=== PATIENT | male | born 1935 | race Caucasian/White ===

== ENCOUNTER 2017-09-28 17:55 | Inpatient (IN) | payer MEDICARE, OTHER, MEDICAID ==
[2017-09-28 18:39] LABS: ADD MAN DIFF? NO
[2017-09-28 18:40] LABS: WHITE BLOOD COUNT 16.9 10^3/ul (4.8-10.8)
[2017-09-28 18:40] LABS: BASOPHIL # 0.1 10^3/ul (0.0-0.1); BASOPHILS % 0.6 % (0.0-2.0); EOSINOPHILS # 0.2 10^3/ul (0.0-0.5); EOSINOPHILS % 1.4 % (0.0-7.0); HEMATOCRIT 32.7 % (42.0-52.0); HEMOGLOBIN 11.1 g/dl (14.0-18.0); LYMPHOCYTES # 1.5 10^3/ul (0.8-2.9); MEAN CORPUSCULAR HEMOGLOBIN 30.2 pg (29.0-33.0); MEAN CORPUSCULAR HGB CONC 33.9 g/dl (32.0-37.0); MEAN CORPUSCULAR VOLUME 88.9 fl (82.0-101.0); MEAN PLATELET VOLUME 11.3 fl (7.4-10.4); MONOCYTE # 1.1 10^3/ul (0.3-0.9); MONOCYTES % 6.5 % (0.0-11.0); NEUTROPHIL # 13.9 10^3/ul (1.6-7.5); PLATELET COUNT 433 10^3/UL (140-415); RED BLOOD COUNT 3.68 10^6/ul (4.70-6.10); RED CELL DISTRIBUTION WIDTH 15.1 % (11.5-14.5)
[2017-09-28] MEDS: METHYLPREDNISOLONE 125 MG INJ IV (18:44)
[2017-09-28 19:03] LABS: PROTIME 14.4 Sec (11.9-14.9); PT RATIO 1.1
[2017-09-28] MEDS: ALBUTEROL 0.5% (NEB) 2.5 MG/0.5 ML AMP INH (19:05)
[2017-09-28] MEDS: IPRATROPIUM (NEB) 0.5 MG/2.5 ML AMP INH (19:05)
[2017-09-28 19:07] LABS: ANION GAP 26 (8-16); BLOOD UREA NITROGEN 56 mg/dl (7-20); CARBON DIOXIDE 15 mmol/L (21-31); CHLORIDE 104 mmol/L (97-110); CREATININE 1.63 mg/dl (0.61-1.24); GLUCOSE 214 mg/dl (70-220); POTASSIUM 4.7 mmol/L (3.5-5.1); SODIUM 140 mmol/L (135-144)
[2017-09-28 19:15] LABS: B-TYPE NATRIURETIC PEPTIDE 5320 PG/ML (0-450)
[2017-09-28 19:20] LABS: TROPONIN-I 0.027 ng/ml (0.00-0.12)
[2017-09-28] MEDS ORDERED: ACETAMINOPHEN 325 MG TAB PO (21:30)
[2017-09-28] MEDS ORDERED: ONDANSETRON 4 MG INJ IV (21:30)
[2017-09-28] MEDS: SOD CHLORIDE 0.9% 1,000 ML IV (21:31)
[2017-09-28] MEDS: CEFEPIME 1GM/50 ML (PMX) 50 ML IVPB (21:48)
[2017-09-28 21:57] LABS: AADO2 Arterial 291.4 mmHg (7.0-24.0); Arterial Base Excess -10.9 mmol/L (-3.0-3); Arterial Blood Gas Oxygen Sat 88.4 mmHG (95.0-100.0); Arterial COHb 0.3 % (0.0-3.0); Arterial HCO3 12.9 mmol/L (22.0-26.0); Arterial MetHb 0.1 % (0.0-1.5); Arterial Total Hemglobin 10.3 g/dl (12.0-18.0); Arterial pCO2 23.5 mmhg (35-45); MODE MASK - NRB; Site Right Brachial
[2017-09-28] MEDS: VANCOMYCIN 1 GM (PMX) 250 ML IVPB (22:38)
[2017-09-28 22:49] LABS: LACTIC ACID 3.5 mmol/L (0.5-2.0)
[2017-09-28] MEDS: LORAZEPAM 2 MG INJ IV (22:59)
[2017-09-29] MEDS ORDERED: ALBUTEROL/IPRATROPIUM (NEB) 3 ML AMP HHN (01:00)
[2017-09-29] MEDS ORDERED: NACL 0.9% 3 ML SYG IV (01:00)
[2017-09-29] MEDS ORDERED: VANCOMYCIN IV PER PHARMACY XX (01:00)
[2017-09-29] MEDS: PREGABALIN 25 MG CAP PO ×4 (01:00→21:39)
[2017-09-29] MEDS ORDERED: ACETAMINOPHEN 325 MG TAB PO (01:00)
[2017-09-29] MEDS: LORAZEPAM 2 MG INJ IV ×2 (01:31→09:30)
[2017-09-29 06:09] LABS: ADD MAN DIFF? NO
[2017-09-29 06:36] LABS: WHITE BLOOD COUNT 9.5 10^3/ul (4.8-10.8)
[2017-09-29 06:36] LABS: ABNORMAL IP MESSAGE 1; BASOPHILS % 0.1 % (0.0-2.0); HEMATOCRIT 28.6 % (42.0-52.0); HEMOGLOBIN 9.4 g/dl (14.0-18.0); LYMPHOCYTES # 0.3 10^3/ul (0.8-2.9); LYMPHOCYTES % 2.7 % (15.0-51.0); MEAN CORPUSCULAR HEMOGLOBIN 29.7 pg (29.0-33.0); MEAN CORPUSCULAR HGB CONC 32.9 g/dl (32.0-37.0); MEAN CORPUSCULAR VOLUME 90.2 fl (82.0-101.0); MEAN PLATELET VOLUME 11.5 fl (7.4-10.4); MONOCYTE # 0.1 10^3/ul (0.3-0.9); MONOCYTES % 1.1 % (0.0-11.0); NEUTROPHIL # 9.1 10^3/ul (1.6-7.5); NEUTROPHILS % 95.8 % (39.0-77.0); PLATELET COUNT 356 10^3/UL (140-415); POSITIVE DIFF @See below; RED BLOOD COUNT 3.17 10^6/ul (4.70-6.10); RED CELL DISTRIBUTION WIDTH 14.8 % (11.5-14.5)
[2017-09-29 07:19] LABS: ALANINE AMINOTRANSFERASE 25 IU/L (13-69); ALBUMIN 3.5 g/dl (3.3-4.9); ALBUMIN/GLOBULIN RATIO 1.09; ALKALINE PHOSPHATASE 110 IU/L (42-121); ANION GAP 25 (8-16); ASPARTATE AMINO TRANSFERASE 20 IU/L (15-46); BILIRUBIN,INDIRECT 0.1 mg/dl (0-1.1); BILIRUBIN,TOTAL 0.1 mg/dl (0.2-1.3); BLOOD UREA NITROGEN 62 mg/dl (7-20); CALCIUM 7.8 mg/dl (8.4-10.2); CARBON DIOXIDE 14 mmol/L (21-31); CHLORIDE 107 mmol/L (97-110); CHOL/HDL RATIO 4.6 RATIO; CHOLESTEROL 134 mg/dl (100-200); CREATININE 1.84 mg/dl (0.61-1.24); HDL CHOLESTEROL 29 mg/dl (31-75); LDL CHOLESTEROL,CALCULATED 88 mg/dl; MAGNESIUM 1.9 mg/dl (1.7-2.5); PHOSPHORUS 5.2 mg/dl (2.5-4.9); POTASSIUM 5.3 mmol/L (3.5-5.1); SODIUM 141 mmol/L (135-144); TOTAL PROTEIN 6.7 g/dl (6.1-8.1); TRIGLYCERIDES 83 mg/dl (0-149)
[2017-09-29 07:25] LABS: GLUCOSE 475 mg/dl (70-220)
[2017-09-29] MEDS: PANTOPRAZOLE (EC) 40 MG TAB PO ×2 (07:49→17:18)
[2017-09-29 08:13] LABS: HEMOGLOBIN A1C 7.8 % (0-5.9)
[2017-09-29] MEDS: CEFEPIME 1GM/50 ML (PMX) 50 ML IVPB ×2 (09:00→22:40)
[2017-09-29] MEDS ORDERED: GLUCAGON 1 MG INJ IM (09:00)
[2017-09-29] MEDS: CLOPIDOGREL 75 MG TAB PO (09:00)
[2017-09-29] MEDS ORDERED: GLUCOSE GEL 15 GRAM TUBE PO ×2 (09:00)
[2017-09-29] MEDS ORDERED: DEXTROSE 50% 50 ML SYRINGE IV ×2 (09:00)
[2017-09-29] MEDS ORDERED: GLUCOSE GEL 15 GRAM TUBE BUCCAL (09:00)
[2017-09-29] MEDS: INSULIN GLARGINE [LANtus] 3 ML PEN SC (09:41)
[2017-09-29] MEDS: REPAGLINIDE 2 MG TAB PO ×3 (09:45→17:14)
[2017-09-29] MEDS: AMIODARONE 200 MG TAB PO (09:45)
[2017-09-29] MEDS: ASPIRIN (EC) 81 MG TAB PO (09:46)
[2017-09-29] MEDS: VALSARTAN 160 MG TAB PO ×2 (09:46→22:08)
[2017-09-29] MEDS: FERROUS SULFATE (EC) 325 MG TAB PO ×2 (09:46→22:08)
[2017-09-29] MEDS: FOLIC ACID 1 MG TAB PO (09:46)
[2017-09-29] MEDS: AMLODIPINE 5 MG TAB PO (09:47)
[2017-09-29] MEDS: INSULIN ASPART [NOVOLOG] 3 ML PEN SC ×5 (09:51→22:20)
[2017-09-29] MEDS: VANCOMYCIN 1 GM 250 ML IVPB (13:36)
[2017-09-29] MEDS: INSULIN LISPRO 100 UNIT/ML VIAL SC (13:44)
[2017-09-29] MEDS ORDERED: VANCOMYCIN 1 GM 250 ML IVPB (14:00)
[2017-09-29] MEDS: ALBUTEROL/IPRATROPIUM (NEB) 3 ML AMP HHN ×2 (14:38→20:09)
[2017-09-29 17:52] LABS: AADO2 Arterial 310.6 mmHg (7.0-24.0); Allen Test ACCEPTAB; Arterial Base Excess -6.8 mmol/L (-3.0-3); Arterial Blood Gas Oxygen Sat 95.8 mmHG (95.0-100.0); Arterial COHb 0.1 % (0.0-3.0); Arterial Fraction of Oxyhgb 95.5 % (93.0-99.0); Arterial HCO3 16.5 mmol/L (22.0-26.0); Arterial MetHb 0.2 % (0.0-1.5); Arterial Total Hemglobin 10.1 g/dl (12.0-18.0); Arterial pCO2 26.3 mmhg (35-45); Blood Gas IEPAP 15/5; Blood Gas PS 10; MODE MASK - BIPAP; Site Right Radial
[2017-09-29 18:27] LABS: UR KETONES (Dip) NEGATIVE (NEGATIVE)
[2017-09-29] MEDS: ATORVASTATIN 10 MG TAB PO (22:07)
[2017-09-29] MEDS: METHYLPREDNISOLONE 125 MG INJ IV (23:28)
[2017-09-29] MEDS: NPH, HUMAN INSULIN ISOPHANE 3ML VIAL SC (23:30)
[2017-09-30] MEDS: ALBUTEROL/IPRATROPIUM (NEB) 3 ML AMP HHN ×4 (01:36→20:34)
[2017-09-30] MEDS: ACCU-CHEK XX (02:27)
[2017-09-30 05:22] LABS: AADO2 Arterial 260.6 mmHg (7.0-24.0); Allen Test ACCEPTAB; Arterial COHb 0.3 % (0.0-3.0); Arterial Fraction of Oxyhgb 91.4 % (93.0-99.0); Arterial HCO3 17.1 mmol/L (22.0-26.0); Arterial MetHb 0.3 % (0.0-1.5); Arterial Total Hemglobin 11.2 g/dl (12.0-18.0); Arterial pCO2 26.9 mmhg (35-45); Blood Gas IEPAP 15/5; Blood Gas PS 10; MODE BIPAP - S/T; Site Right Radial
[2017-09-30] MEDS: PANTOPRAZOLE (EC) 40 MG TAB PO (05:37)
[2017-09-30 05:51] LABS: ABNORMAL IP MESSAGE 1; HEMATOCRIT 30.5 % (42.0-52.0); HEMOGLOBIN 10.5 g/dl (14.0-18.0); MEAN CORPUSCULAR HEMOGLOBIN 30.3 pg (29.0-33.0); MEAN CORPUSCULAR HGB CONC 34.4 g/dl (32.0-37.0); MEAN CORPUSCULAR VOLUME 87.9 fl (82.0-101.0); PLATELET COUNT 488 10^3/UL (140-415); POSITIVE DIFF @See below; RED BLOOD COUNT 3.47 10^6/ul (4.70-6.10); RED CELL DISTRIBUTION WIDTH 14.8 % (11.5-14.5)
[2017-09-30 06:05] LABS: LACTIC ACID 1.8 mmol/L (0.5-2.0)
[2017-09-30 06:07] LABS: ANION GAP 22 (8-16); BLOOD UREA NITROGEN 66 mg/dl (7-20); CALCIUM 8.7 mg/dl (8.4-10.2); CARBON DIOXIDE 17 mmol/L (21-31); CHLORIDE 111 mmol/L (97-110); CREATININE 1.62 mg/dl (0.61-1.24); GLUCOSE 214 mg/dl (70-220); MAGNESIUM 2.3 mg/dl (1.7-2.5); PHOSPHORUS 4.2 mg/dl (2.5-4.9); POTASSIUM 4.6 mmol/L (3.5-5.1); SODIUM 145 mmol/L (135-144)
[2017-09-30 06:14] LABS: ADD MAN DIFF? YES
[2017-09-30] MEDS: REPAGLINIDE 2 MG TAB PO (07:05)
[2017-09-30] MEDS: INSULIN ASPART [NOVOLOG] 3 ML PEN SC ×5 (07:35→21:00)
[2017-09-30] MEDS: ASPIRIN (EC) 81 MG TAB PO ×2 (09:00→17:00)
[2017-09-30] MEDS: FERROUS SULFATE (EC) 325 MG TAB PO (09:00)
[2017-09-30] MEDS: PREGABALIN 25 MG CAP PO (09:00)
[2017-09-30] MEDS: FOLIC ACID 1 MG TAB PO (09:00)
[2017-09-30] MEDS: CLOPIDOGREL 75 MG TAB PO ×2 (09:00→17:00)
[2017-09-30 09:05] LABS: ANISOCYTOSIS 1+ (0-0); LYMPHOCYTES #M 0.5 10^3/ul (0.8-2.9); LYMPHOCYTES % (M) 2 % (15-51); MICROCYTOSIS 1+ (0-0); MONOCYTE #M 0.2 10^3/ul (0.3-0.9); MONOCYTES % (M) 1 % (0-11); PLATELET ESTIMATE NORMAL; RBC MORPHOLOGY COMMENT @See below; SEGMENTED NEUTROPHILS (M) % 97 % (39-77); WBC MORPHOLOGY COMMENT @See below
[2017-09-30] MEDS: METHYLPREDNISOLONE 125 MG INJ IV ×2 (09:23→20:58)
[2017-09-30] MEDS: CEFEPIME 1GM/50 ML (PMX) 50 ML IVPB ×2 (09:23→20:57)
[2017-09-30] MEDS: FUROSEMIDE 40 MG INJ IV (09:24)
[2017-09-30 10:40] LABS: AADO2 Arterial 185.5 mmHg (7.0-24.0); Allen Test ACCEPTAB; Arterial Base Excess -7.3 mmol/L (-3.0-3); Arterial Blood Gas Oxygen Sat 92.7 mmHG (95.0-100.0); Arterial COHb 0.3 % (0.0-3.0); Arterial Fraction of Oxyhgb 92.3 % (93.0-99.0); Arterial HCO3 16.4 mmol/L (22.0-26.0); Arterial MetHb 0.1 % (0.0-1.5); Arterial Total Hemglobin 10.5 g/dl (12.0-18.0); Arterial pCO2 27.4 mmhg (35-45); Blood Gas IEPAP 15/5; MODE MASK - BIPAP; Site Right Radial
[2017-09-30] MEDS: FAMOTIDINE 20 MG INJ IV ×2 (11:26→20:57)
[2017-09-30 11:36] LABS: CREATINE KINASE 97 IU/L (23-200)
[2017-09-30 11:49] LABS: CK INDEX 3.5; TROPONIN-I 0.031 ng/ml (0.00-0.12)
[2017-09-30 11:51] LABS: CK-MB 3.43 ng/ml (0.0-2.4)
[2017-09-30 15:04] LABS: CREATINE KINASE 89 IU/L (23-200)
[2017-09-30 15:17] LABS: CK INDEX 3.8; TROPONIN-I 0.025 ng/ml (0.00-0.12)
[2017-09-30 15:20] LABS: CK-MB 3.42 ng/ml (0.0-2.4)
[2017-09-30] MEDS: ONDANSETRON 4 MG INJ IV (17:07)
[2017-09-30] MEDS: ASPIRIN 300 MG SUPP PR (18:00)
[2017-09-30] MEDS: ATORVASTATIN 10 MG TAB PO (20:33)
[2017-09-30] MEDS: NPH, HUMAN INSULIN ISOPHANE 3ML VIAL SC (21:00)
[2017-10-01] MEDS: ACCU-CHEK XX ×14 (01:05→22:11)
[2017-10-01] MEDS: VANCOMYCIN 1 GM 250 ML IVPB (01:06)
[2017-10-01 01:13] LABS: ADD UMIC YES; UR ASCORBIC ACID NEGATIVE (NEGATIVE); UR BILIRUBIN (Dip) NEGATIVE (NEGATIVE); UR BLOOD (Dip) 1+ mg/dL (NEGATIVE); UR CLARITY CLEAR (CLEAR); UR COLOR YELLOW (YELLOW); UR GLUCOSE (Dip) NEGATIVE (NEGATIVE); UR KETONES (Dip) NEGATIVE (NEGATIVE); UR LEUKOCYTE ESTERASE (Dip) NEGATIVE Leu/ul (NEGATIVE); UR NITRITE (Dip) NEGATIVE (NEGATIVE); UR RBC 1 /HPF (0-5); UR SPECIFIC GRAVITY (Dip) 1.016 (1.003-1.030); UR TOTAL PROTEIN (Dip) NEGATIVE (NEGATIVE); UR UROBILINOGEN (Dip) NEGATIVE (NEGATIVE); UR WBC 1 /HPF (0-5)
[2017-10-01] MEDS: ALBUTEROL/IPRATROPIUM (NEB) 3 ML AMP HHN ×4 (01:37→19:58)
[2017-10-01 01:55] LABS: CREATININE,URINE RANDOM 84.33 mg/dl (20-370)
[2017-10-01 02:03] LABS: SODIUM,URINE RANDOM < 13 mmol/L (30-90)
[2017-10-01 05:15] LABS: ADD MAN DIFF? NO
[2017-10-01 05:21] LABS: ABNORMAL IP MESSAGE 1; BASOPHILS % 0.1 % (0.0-2.0); EOSINOPHILS % 0.2 % (0.0-7.0); HEMATOCRIT 30.4 % (42.0-52.0); HEMOGLOBIN 10.3 g/dl (14.0-18.0); LYMPHOCYTES # 0.1 10^3/ul (0.8-2.9); LYMPHOCYTES % 0.7 % (15.0-51.0); MEAN CORPUSCULAR HEMOGLOBIN 29.9 pg (29.0-33.0); MEAN CORPUSCULAR HGB CONC 33.9 g/dl (32.0-37.0); MEAN CORPUSCULAR VOLUME 88.4 fl (82.0-101.0); MONOCYTE # 0.4 10^3/ul (0.3-0.9); MONOCYTES % 1.8 % (0.0-11.0); NEUTROPHIL # 18.4 10^3/ul (1.6-7.5); NEUTROPHILS % 95.4 % (39.0-77.0); PLATELET COUNT 488 10^3/UL (140-415); POSITIVE DIFF @See below; RED BLOOD COUNT 3.44 10^6/ul (4.70-6.10); RED CELL DISTRIBUTION WIDTH 15.3 % (11.5-14.5)
[2017-10-01 05:21] LABS: WHITE BLOOD COUNT 19.2 10^3/ul (4.8-10.8)
[2017-10-01 06:32] LABS: ALANINE AMINOTRANSFERASE 30 IU/L (13-69); ALBUMIN 3.6 g/dl (3.3-4.9); ALBUMIN/GLOBULIN RATIO 0.97; ALKALINE PHOSPHATASE 114 IU/L (42-121); ANION GAP 19 (8-16); ASPARTATE AMINO TRANSFERASE 23 IU/L (15-46); BLOOD UREA NITROGEN 77 mg/dl (7-20); CALCIUM 8.8 mg/dl (8.4-10.2); CARBON DIOXIDE 19 mmol/L (21-31); CHLORIDE 110 mmol/L (97-110); CREATININE 1.58 mg/dl (0.61-1.24); GLUCOSE 318 mg/dl (70-220); POTASSIUM 4.5 mmol/L (3.5-5.1); SODIUM 143 mmol/L (135-144); TOTAL PROTEIN 7.3 g/dl (6.1-8.1)
[2017-10-01 06:38] LABS: MAGNESIUM 2.4 mg/dl (1.7-2.5)
[2017-10-01 06:38] LABS: PHOSPHORUS 4.9 mg/dl (2.5-4.9)
[2017-10-01 06:50] LABS: B-TYPE NATRIURETIC PEPTIDE 5280 PG/ML (0-450)
[2017-10-01] MEDS: morphine 2 MG INJ IV ×2 (08:24→17:20)
[2017-10-01] MEDS: INSULIN ASPART [NOVOLOG] 3 ML PEN SC (08:28)
[2017-10-01] MEDS: NPH, HUMAN INSULIN ISOPHANE 3ML VIAL SC (08:30)
[2017-10-01] MEDS: METHYLPREDNISOLONE 125 MG INJ IV (08:38)
[2017-10-01] MEDS: ASPIRIN (EC) 81 MG TAB PO (08:40)
[2017-10-01] MEDS: FOLIC ACID 1 MG TAB PO (08:40)
[2017-10-01] MEDS: CEFEPIME 1GM/50 ML (PMX) 50 ML IVPB ×2 (08:40→20:47)
[2017-10-01] MEDS: CLOPIDOGREL 75 MG TAB PO (08:40)
[2017-10-01] MEDS: FUROSEMIDE 40 MG INJ IV ×2 (08:41→17:20)
[2017-10-01 08:57] LABS: FREE T4 (FREE THYROXINE) 1.99 ng/dl (0.85-1.93)
[2017-10-01] MEDS: ASPIRIN 300 MG SUPP PR (09:00)
[2017-10-01] MEDS: FAMOTIDINE 20 MG INJ IV ×2 (09:00→20:47)
[2017-10-01] MEDS: BARIUM SULF 2% 450 ML BTL (BERRY SMOOTHIE) PO (10:00)
[2017-10-01] MEDS: INSULIN GLARGINE [LANtus] 3 ML PEN SC (11:00)
[2017-10-01 11:07] LABS: LIPASE 45 U/L (23-300)
[2017-10-01 11:07] LABS: AMYLASE 61 U/L (11-123)
[2017-10-01] MEDS ORDERED: DEXTROSE 50% 50 ML SYRINGE IV ×2 (13:00)
[2017-10-01] MEDS ORDERED: INSULIN ASPART [NOVOLOG] 3 ML PEN SC (13:00)
[2017-10-01] MEDS: INSULIN HUMAN REGULAR 100 UNIT in SOD CHLORIDE 0.9% 99 ML IV (16:32)
[2017-10-01] MEDS: METHYLPREDNISOLONE 40 MG INJ IV (20:46)
[2017-10-01] MEDS: ATORVASTATIN 10 MG TAB PO (20:47)
[2017-10-01] MEDS ORDERED: DICLOFENAC SODIUM 1% GEL 100 GM TUBE TP (21:00)
[2017-10-01] MEDS: DICLOFENAC SODIUM 1% GEL 100 GM TUBE TP (22:55)
[2017-10-02] MEDS: ACCU-CHEK XX ×24 (00:07→22:45)
[2017-10-02] MEDS: VANCOMYCIN 750 MG in DEXTROSE 5% 150 ML IVPB (00:36)
[2017-10-02] MEDS: ALBUTEROL/IPRATROPIUM (NEB) 3 ML AMP HHN ×4 (02:55→19:54)
[2017-10-02] MEDS: morphine 2 MG INJ IV ×3 (03:24→18:34)
[2017-10-02 05:43] LABS: ADD MAN DIFF? NO
[2017-10-02 05:51] LABS: WHITE BLOOD COUNT 19.4 10^3/ul (4.8-10.8)
[2017-10-02 05:51] LABS: ABNORMAL IP MESSAGE 1; BASOPHILS % 0.1 % (0.0-2.0); HEMATOCRIT 33.4 % (42.0-52.0); LYMPHOCYTES # 0.1 10^3/ul (0.8-2.9); LYMPHOCYTES % 0.7 % (15.0-51.0); MEAN CORPUSCULAR HEMOGLOBIN 29.6 pg (29.0-33.0); MEAN CORPUSCULAR HGB CONC 32.9 g/dl (32.0-37.0); MEAN CORPUSCULAR VOLUME 89.8 fl (82.0-101.0); MEAN PLATELET VOLUME 10.9 fl (7.4-10.4); MONOCYTE # 0.6 10^3/ul (0.3-0.9); MONOCYTES % 2.8 % (0.0-11.0); NEUTROPHIL # 18.4 10^3/ul (1.6-7.5); NEUTROPHILS % 95.3 % (39.0-77.0); PLATELET COUNT 503 10^3/UL (140-415); POSITIVE DIFF @See below; RED BLOOD COUNT 3.72 10^6/ul (4.70-6.10); RED CELL DISTRIBUTION WIDTH 14.9 % (11.5-14.5)
[2017-10-02] MEDS: FUROSEMIDE 40 MG INJ IV (05:56)
[2017-10-02 06:35] LABS: ANION GAP 18 (8-16); BLOOD UREA NITROGEN 73 mg/dl (7-20); CALCIUM 8.7 mg/dl (8.4-10.2); CARBON DIOXIDE 25 mmol/L (21-31); CHLORIDE 107 mmol/L (97-110); CREATININE 1.61 mg/dl (0.61-1.24); GLUCOSE 137 mg/dl (70-220); MAGNESIUM 2.3 mg/dl (1.7-2.5); PHOSPHORUS 4.6 mg/dl (2.5-4.9); SODIUM 146 mmol/L (135-144)
[2017-10-02 08:27] LABS: AADO2 Arterial 587.9 mmHg (7.0-24.0); Allen Test ACCEPTAB; Arterial Base Excess 0.1 mmol/L (-3.0-3); Arterial Blood Gas Oxygen Sat 96.5 mmHG (95.0-100.0); Arterial COHb 0.3 % (0.0-3.0); Arterial Fraction of Oxyhgb 96.2 % (93.0-99.0); Arterial HCO3 23.5 mmol/L (22.0-26.0); Arterial MetHb 0 % (0.0-1.5); Arterial Total Hemglobin 10.8 g/dl (12.0-18.0); MODE MASK - NRB; Site Right Radial
[2017-10-02] MEDS: FAMOTIDINE 20 MG INJ IV ×2 (08:54→21:32)
[2017-10-02] MEDS: METHYLPREDNISOLONE 40 MG INJ IV (08:54)
[2017-10-02] MEDS: CEFEPIME 1GM/50 ML (PMX) 50 ML IVPB ×2 (08:54→21:32)
[2017-10-02] MEDS: FOLIC ACID 1 MG TAB PO (08:54)
[2017-10-02] MEDS: CLOPIDOGREL 75 MG TAB PO (08:54)
[2017-10-02] MEDS: ASPIRIN (EC) 81 MG TAB PO ×2 (08:54→08:55)
[2017-10-02] MEDS: ASPIRIN 300 MG SUPP PR (08:56)
[2017-10-02 12:06] LABS: CREATININE, RANDOM URINE 97 mg/dL (20-370); MICROALBUMIN 5.9 mg/dL; MICROALBUMIN/CREATININE RATIO 61 (<30)
[2017-10-02] MEDS: LIDOCAINE 1% (MPF) 5 ML VIAL (13:30)
[2017-10-02] MEDS: ONDANSETRON 4 MG INJ IV (17:45)
[2017-10-02] MEDS: INSULIN HUMAN REGULAR 100 UNIT in SOD CHLORIDE 0.9% 99 ML IV (18:20)
[2017-10-02] MEDS: ATORVASTATIN 10 MG TAB PO (21:32)
[2017-10-03] MEDS: ONDANSETRON 4 MG INJ IV (00:16)
[2017-10-03] MEDS: ACCU-CHEK XX ×14 (01:13→13:00)
[2017-10-03 01:18] LABS: VANCOMYCIN,TROUGH 10.5 ug/ml (10.0-20.0)
[2017-10-03] MEDS: VANCOMYCIN 1 GM 250 ML IVPB (01:31)
[2017-10-03] MEDS: ALBUTEROL/IPRATROPIUM (NEB) 3 ML AMP HHN ×4 (01:37→19:34)
[2017-10-03 06:03] LABS: ANION GAP 15 (8-16); BLOOD UREA NITROGEN 71 mg/dl (7-20); CALCIUM 8.1 mg/dl (8.4-10.2); CARBON DIOXIDE 25 mmol/L (21-31); CHLORIDE 105 mmol/L (97-110); CREATININE 1.56 mg/dl (0.61-1.24); GLUCOSE 133 mg/dl (70-220); MAGNESIUM 2.2 mg/dl (1.7-2.5); PHOSPHORUS 4.4 mg/dl (2.5-4.9); POTASSIUM 4.1 mmol/L (3.5-5.1); SODIUM 141 mmol/L (135-144)
[2017-10-03] MEDS: CEFEPIME 1GM/50 ML (PMX) 50 ML IVPB ×2 (08:45→21:15)
[2017-10-03] MEDS: FAMOTIDINE 20 MG INJ IV ×2 (08:49→21:14)
[2017-10-03] MEDS: FOLIC ACID 1 MG TAB PO (08:49)
[2017-10-03] MEDS: FUROSEMIDE 40 MG INJ IV (08:49)
[2017-10-03] MEDS: ASPIRIN (EC) 81 MG TAB PO (08:49)
[2017-10-03 08:54] LABS: AADO2 Arterial 396.6 mmHg (7.0-24.0); Allen Test ACCEPTAB; Arterial Base Excess -0.1 mmol/L (-3.0-3); Arterial Blood Gas Oxygen Sat 91.6 mmHG (95.0-100.0); Arterial COHb 0.3 % (0.0-3.0); Arterial Fraction of Oxyhgb 91.2 % (93.0-99.0); Arterial HCO3 23.6 mmol/L (22.0-26.0); Arterial MetHb 0.1 % (0.0-1.5); Arterial Total Hemglobin 10.7 g/dl (12.0-18.0); MODE HFNC; Site Left Radial
[2017-10-03] MEDS: CLOPIDOGREL 75 MG TAB PO (08:54)
[2017-10-03] MEDS: ASPIRIN 300 MG SUPP PR (08:55)
[2017-10-03] MEDS: METOLAZONE 2.5 MG TAB PO (10:00)
[2017-10-03] MEDS ORDERED: REPAGLINIDE 2 MG TAB PO (11:00)
[2017-10-03] MEDS: INSULIN GLARGINE [LANtus] 3 ML PEN SC ×2 (11:07→21:17)
[2017-10-03] MEDS: METOCLOPRAMIDE 10 MG INJ IV ×2 (11:24→17:45)
[2017-10-03] MEDS: REPAGLINIDE 1 MG TAB PO ×2 (11:30→17:45)
[2017-10-03] MEDS: morphine 2 MG INJ IV ×2 (16:01→19:04)
[2017-10-03] MEDS: INSULIN ASPART [NOVOLOG] 3 ML PEN SC ×2 (17:43→21:18)
[2017-10-03] MEDS ORDERED: morphine 2 MG INJ (19:02)
[2017-10-03] MEDS ORDERED: HALOPERIDOL 5 MG INJ (20:14)
[2017-10-03] MEDS: HALOPERIDOL 5 MG INJ IM (20:29)
[2017-10-03] MEDS: LORAZEPAM 2 MG INJ IV ×2 (20:29→22:28)
[2017-10-03] MEDS ORDERED: HALOPERIDOL 5 MG INJ IV (20:30)
[2017-10-03] MEDS: ATORVASTATIN 10 MG TAB PO (21:15)
[2017-10-03] MEDS ORDERED: DIPHENHYDRAMINE 50 MG INJ IV (22:30)
[2017-10-03] MEDS: DIPHENHYDRAMINE 50 MG INJ IV (22:36)
[2017-10-04] MEDS: LORAZEPAM 2 MG INJ IV ×4 (00:18→21:45)
[2017-10-04] MEDS: VANCOMYCIN 1 GM 250 ML IVPB (01:18)
[2017-10-04] MEDS: ALBUTEROL/IPRATROPIUM (NEB) 3 ML AMP HHN ×4 (01:56→20:25)
[2017-10-04] MEDS: METOCLOPRAMIDE 10 MG INJ IV ×3 (02:03→17:34)
[2017-10-04] MEDS: morphine 2 MG INJ IV ×5 (02:13→22:54)
[2017-10-04] MEDS: HALOPERIDOL 5 MG INJ IM ×3 (02:23→21:58)
[2017-10-04 05:38] LABS: ADD UMIC YES; UR ASCORBIC ACID NEGATIVE (NEGATIVE); UR BACTERIA FEW /HPF (NONE SEEN); UR BILIRUBIN (Dip) NEGATIVE (NEGATIVE); UR BLOOD (Dip) 3+ mg/dL (NEGATIVE); UR CLARITY CLOUDY (CLEAR); UR COLOR YELLOW (YELLOW); UR GLUCOSE (Dip) 2+ mg/dL (NEGATIVE); UR KETONES (Dip) NEGATIVE (NEGATIVE); UR LEUKOCYTE ESTERASE (Dip) TRACE Leu/ul (NEGATIVE); UR MUCUS FEW /HPF (NONE SEEN); UR NITRITE (Dip) NEGATIVE (NEGATIVE); UR RBC 55 /HPF (0-5); UR SPECIFIC GRAVITY (Dip) 1.013 (1.003-1.030); UR TOTAL PROTEIN (Dip) 1+ mg/dl (NEGATIVE); UR UROBILINOGEN (Dip) NEGATIVE (NEGATIVE); UR WBC 3 /HPF (0-5)
[2017-10-04 06:13] LABS: AADO2 Arterial 546.2 mmHg (7.0-24.0); Allen Test ACCEPTAB; Arterial Base Excess 2.9 mmol/L (-3.0-3); Arterial Blood Gas Oxygen Sat 89.9 mmHG (95.0-100.0); Arterial COHb 0.3 % (0.0-3.0); Arterial Fraction of Oxyhgb 89.5 % (93.0-99.0); Arterial HCO3 26.3 mmol/L (22.0-26.0); Arterial MetHb 0.2 % (0.0-1.5); Arterial Total Hemglobin 11.8 g/dl (12.0-18.0); Arterial pCO2 35.9 mmhg (35-45); MODE HFNC; Site Right Radial
[2017-10-04] MEDS: REPAGLINIDE 1 MG TAB PO ×3 (06:30→17:26)
[2017-10-04 06:37] LABS: ADD MAN DIFF? NO
[2017-10-04 06:45] LABS: BASOPHILS % 0.1 % (0.0-2.0); EOSINOPHILS # 0.2 10^3/ul (0.0-0.5); EOSINOPHILS % 1.8 % (0.0-7.0); HEMATOCRIT 29.3 % (42.0-52.0); HEMOGLOBIN 9.8 g/dl (14.0-18.0); LYMPHOCYTES # 0.7 10^3/ul (0.8-2.9); LYMPHOCYTES % 5.3 % (15.0-51.0); MEAN CORPUSCULAR HEMOGLOBIN 29.4 pg (29.0-33.0); MEAN CORPUSCULAR HGB CONC 33.4 g/dl (32.0-37.0); MONOCYTE # 0.8 10^3/ul (0.3-0.9); MONOCYTES % 6.1 % (0.0-11.0); NEUTROPHIL # 10.9 10^3/ul (1.6-7.5); NEUTROPHILS % 85.7 % (39.0-77.0); PLATELET COUNT 400 10^3/UL (140-415); RED BLOOD COUNT 3.33 10^6/ul (4.70-6.10); RED CELL DISTRIBUTION WIDTH 14.4 % (11.5-14.5)
[2017-10-04 06:45] LABS: WHITE BLOOD COUNT 12.7 10^3/ul (4.8-10.8)
[2017-10-04 07:11] LABS: ANION GAP 11 (8-16); BLOOD UREA NITROGEN 62 mg/dl (7-20); CALCIUM 8.3 mg/dl (8.4-10.2); CARBON DIOXIDE 29 mmol/L (21-31); CHLORIDE 102 mmol/L (97-110); CREATININE 1.48 mg/dl (0.61-1.24); GLUCOSE 123 mg/dl (70-220); PHOSPHORUS 3.7 mg/dl (2.5-4.9); SODIUM 138 mmol/L (135-144)
[2017-10-04] MEDS: INSULIN ASPART [NOVOLOG] 3 ML PEN SC ×4 (07:35→20:37)
[2017-10-04] MEDS ORDERED: INSULIN GLARGINE [LANtus] 3 ML PEN SC (08:00)
[2017-10-04 08:40] LABS: ALANINE AMINOTRANSFERASE 34 IU/L (13-69); ALKALINE PHOSPHATASE 93 IU/L (42-121); ASPARTATE AMINO TRANSFERASE 29 IU/L (15-46); BILIRUBIN,INDIRECT 0.2 mg/dl (0-1.1); BILIRUBIN,TOTAL 0.2 mg/dl (0.2-1.3); TOTAL PROTEIN 5.9 g/dl (6.1-8.1)
[2017-10-04] MEDS: FAMOTIDINE 20 MG INJ IV ×2 (08:53→20:19)
[2017-10-04] MEDS: FUROSEMIDE 40 MG INJ IV (08:53)
[2017-10-04] MEDS: CEFEPIME 1GM/50 ML (PMX) 50 ML IVPB ×2 (08:53→20:19)
[2017-10-04] MEDS: INSULIN GLARGINE [LANtus] 3 ML PEN SC (08:55)
[2017-10-04] MEDS: ASPIRIN 300 MG SUPP PR (09:00)
[2017-10-04 09:12] LABS: AADO2 Arterial 569.8 mmHg (7.0-24.0); Allen Test ACCEPTAB; Arterial Base Excess 2.5 mmol/L (-3.0-3); Arterial Blood Gas Oxygen Sat 97.3 mmHG (95.0-100.0); Arterial COHb 0.3 % (0.0-3.0); Arterial Fraction of Oxyhgb 96.8 % (93.0-99.0); Arterial HCO3 26.3 mmol/L (22.0-26.0); Arterial MetHb 0.2 % (0.0-1.5); Arterial Total Hemglobin 10.6 g/dl (12.0-18.0); Arterial pCO2 37.4 mmhg (35-45); MODE HFNC; Site Right Radial
[2017-10-04] MEDS: CLOPIDOGREL 75 MG TAB PO (09:51)
[2017-10-04] MEDS: ASPIRIN (EC) 81 MG TAB PO (09:51)
[2017-10-04] MEDS: FOLIC ACID 1 MG TAB PO (09:51)
[2017-10-04 10:32] LABS: PROCALCITONIN 0.22 ng/mL (<0.10)
[2017-10-04 15:47] LABS: PSA, FREE 0.5 ng/mL
[2017-10-04] MEDS: ATORVASTATIN 10 MG TAB PO (20:20)
[2017-10-04] MEDS: ALBUMIN HUMAN 25% 100 ML IV ×2 (22:02→23:56)
[2017-10-05] MEDS: ALBUTEROL/IPRATROPIUM (NEB) 3 ML AMP HHN ×4 (01:07→20:11)
[2017-10-05] MEDS: VANCOMYCIN 1 GM 250 ML IVPB (01:19)
[2017-10-05] MEDS: LORAZEPAM 2 MG INJ IV ×3 (01:20→19:01)
[2017-10-05] MEDS: FUROSEMIDE 40 MG INJ IV ×2 (01:21→08:41)
[2017-10-05] MEDS: METOCLOPRAMIDE 10 MG INJ IV (02:58)
[2017-10-05 05:52] LABS: ADD MAN DIFF? NO
[2017-10-05 06:04] LABS: ABNORMAL IP MESSAGE 1; EOSINOPHILS # 0.6 10^3/ul (0.0-0.5); EOSINOPHILS % 4.4 % (0.0-7.0); HEMATOCRIT 29.1 % (42.0-52.0); HEMOGLOBIN 9.6 g/dl (14.0-18.0); LYMPHOCYTES # 0.5 10^3/ul (0.8-2.9); LYMPHOCYTES % 3.9 % (15.0-51.0); MEAN CORPUSCULAR HEMOGLOBIN 29.1 pg (29.0-33.0); MEAN CORPUSCULAR VOLUME 88.2 fl (82.0-101.0); MEAN PLATELET VOLUME 10.9 fl (7.4-10.4); MONOCYTE # 0.6 10^3/ul (0.3-0.9); MONOCYTES % 4.8 % (0.0-11.0); NEUTROPHIL # 10.9 10^3/ul (1.6-7.5); PLATELET COUNT 404 10^3/UL (140-415); POSITIVE DIFF @See below; RED CELL DISTRIBUTION WIDTH 14.2 % (11.5-14.5)
[2017-10-05 06:04] LABS: WHITE BLOOD COUNT 12.6 10^3/ul (4.8-10.8)
[2017-10-05 06:17] LABS: ANION GAP 16 (8-16); BLOOD UREA NITROGEN 61 mg/dl (7-20); CALCIUM 8.3 mg/dl (8.4-10.2); CARBON DIOXIDE 30 mmol/L (21-31); CHLORIDE 99 mmol/L (97-110); GLUCOSE 104 mg/dl (70-220); POTASSIUM 3.6 mmol/L (3.5-5.1); SODIUM 141 mmol/L (135-144)
[2017-10-05] MEDS: REPAGLINIDE 1 MG TAB PO ×3 (06:33→17:05)
[2017-10-05] MEDS: HALOPERIDOL 5 MG INJ IM (06:40)
[2017-10-05] MEDS: morphine 2 MG INJ IV ×3 (07:30→19:53)
[2017-10-05] MEDS: INSULIN ASPART [NOVOLOG] 3 ML PEN SC ×4 (07:35→21:00)
[2017-10-05] MEDS: FAMOTIDINE 20 MG INJ IV (08:40)
[2017-10-05] MEDS: CEFEPIME 1GM/50 ML (PMX) 50 ML IVPB ×2 (08:41→21:46)
[2017-10-05] MEDS: INSULIN GLARGINE [LANtus] 3 ML PEN SC (08:42)
[2017-10-05] MEDS: ASPIRIN 300 MG SUPP PR (09:00)
[2017-10-05] MEDS: ASPIRIN (EC) 81 MG TAB PO (12:27)
[2017-10-05] MEDS: CLOPIDOGREL 75 MG TAB PO (12:27)
[2017-10-05] MEDS: FOLIC ACID 1 MG TAB PO (12:27)
[2017-10-05] MEDS: ATORVASTATIN 10 MG TAB PO (21:46)
[2017-10-06] MEDS: NA PHOSPHATE/BIPHOS 133 ML ENEMA PR (00:22)
[2017-10-06] MEDS: LORAZEPAM 2 MG INJ IV ×4 (01:10→22:05)
[2017-10-06 01:20] LABS: VANCOMYCIN,TROUGH 16.6 ug/ml (10.0-20.0)
[2017-10-06] MEDS: VANCOMYCIN 1 GM 250 ML IVPB (02:41)
[2017-10-06] MEDS: morphine 2 MG INJ IV ×3 (02:42→12:42)
[2017-10-06] MEDS: ALBUTEROL/IPRATROPIUM (NEB) 3 ML AMP HHN ×4 (02:43→20:58)
[2017-10-06 06:02] LABS: ADD MAN DIFF? NO
[2017-10-06 06:15] LABS: WHITE BLOOD COUNT 15.9 10^3/ul (4.8-10.8)
[2017-10-06 06:15] LABS: BASOPHILS % 0.1 % (0.0-2.0); EOSINOPHILS # 0.7 10^3/ul (0.0-0.5); EOSINOPHILS % 4.1 % (0.0-7.0); HEMATOCRIT 32.4 % (42.0-52.0); LYMPHOCYTES # 0.8 10^3/ul (0.8-2.9); MEAN CORPUSCULAR HEMOGLOBIN 29.8 pg (29.0-33.0); MEAN CORPUSCULAR VOLUME 87.8 fl (82.0-101.0); MEAN PLATELET VOLUME 10.9 fl (7.4-10.4); MONOCYTE # 0.9 10^3/ul (0.3-0.9); MONOCYTES % 5.6 % (0.0-11.0); NEUTROPHIL # 13.4 10^3/ul (1.6-7.5); NEUTROPHILS % 84.3 % (39.0-77.0); PLATELET COUNT 486 10^3/UL (140-415); RED BLOOD COUNT 3.69 10^6/ul (4.70-6.10); RED CELL DISTRIBUTION WIDTH 14.2 % (11.5-14.5)
[2017-10-06 06:41] LABS: ANION GAP 17 (8-16); BLOOD UREA NITROGEN 60 mg/dl (7-20); CALCIUM 9.1 mg/dl (8.4-10.2); CARBON DIOXIDE 31 mmol/L (21-31); CHLORIDE 96 mmol/L (97-110); CREATININE 1.69 mg/dl (0.61-1.24); GLUCOSE 198 mg/dl (70-220); POTASSIUM 3.5 mmol/L (3.5-5.1); SODIUM 140 mmol/L (135-144)
[2017-10-06] MEDS: CEFEPIME 1GM/50 ML (PMX) 50 ML IVPB (08:35)
[2017-10-06] MEDS: FUROSEMIDE 40 MG INJ IV (08:37)
[2017-10-06] MEDS: ASPIRIN 300 MG SUPP PR (08:41)
[2017-10-06] MEDS: REPAGLINIDE 1 MG TAB PO ×3 (09:26→17:36)
[2017-10-06] MEDS: ASPIRIN (EC) 81 MG TAB PO (09:26)
[2017-10-06] MEDS: FOLIC ACID 1 MG TAB PO (09:26)
[2017-10-06] MEDS: CLOPIDOGREL 75 MG TAB PO (09:26)
[2017-10-06] MEDS: INSULIN ASPART [NOVOLOG] 3 ML PEN SC ×4 (09:27→22:06)
[2017-10-06] MEDS: INSULIN GLARGINE [LANtus] 3 ML PEN SC (09:28)
[2017-10-06] MEDS: LIDOCAINE 5% PATCH TD (09:30)
[2017-10-06] MEDS: DICLOFENAC SODIUM 1% GEL 100 GM TUBE TP (16:45)
[2017-10-06] MEDS: ATORVASTATIN 10 MG TAB PO (22:04)
[2017-10-07] MEDS: LORAZEPAM 2 MG INJ IV ×3 (01:32→20:45)
[2017-10-07] MEDS: ALBUTEROL/IPRATROPIUM (NEB) 3 ML AMP HHN ×4 (01:51→20:22)
[2017-10-07] MEDS ORDERED: VANCOMYCIN 750 MG in DEXTROSE 5% 150 ML IVPB (06:00)
[2017-10-07 06:49] LABS: ADD MAN DIFF? NO
[2017-10-07 06:55] LABS: BASOPHILS % 0.1 % (0.0-2.0); EOSINOPHILS # 0.8 10^3/ul (0.0-0.5); EOSINOPHILS % 4.8 % (0.0-7.0); HEMATOCRIT 30.5 % (42.0-52.0); HEMOGLOBIN 10.2 g/dl (14.0-18.0); LYMPHOCYTES # 0.7 10^3/ul (0.8-2.9); LYMPHOCYTES % 4.5 % (15.0-51.0); MEAN CORPUSCULAR HGB CONC 33.4 g/dl (32.0-37.0); MEAN CORPUSCULAR VOLUME 86.6 fl (82.0-101.0); MEAN PLATELET VOLUME 10.7 fl (7.4-10.4); MONOCYTE # 0.9 10^3/ul (0.3-0.9); MONOCYTES % 5.6 % (0.0-11.0); NEUTROPHIL # 13.1 10^3/ul (1.6-7.5); NEUTROPHILS % 84.1 % (39.0-77.0); PLATELET COUNT 457 10^3/UL (140-415); RED BLOOD COUNT 3.52 10^6/ul (4.70-6.10); RED CELL DISTRIBUTION WIDTH 14.1 % (11.5-14.5)
[2017-10-07 06:55] LABS: WHITE BLOOD COUNT 15.5 10^3/ul (4.8-10.8)
[2017-10-07 07:24] LABS: SODIUM 139 mmol/L (135-144)
[2017-10-07 07:25] LABS: ANION GAP 15 (8-16); BLOOD UREA NITROGEN 56 mg/dl (7-20); CALCIUM 8.5 mg/dl (8.4-10.2); CARBON DIOXIDE 32 mmol/L (21-31); CHLORIDE 96 mmol/L (97-110); CREATININE 1.53 mg/dl (0.61-1.24); GLUCOSE 137 mg/dl (70-220); MAGNESIUM 1.9 mg/dl (1.7-2.5); PHOSPHORUS 3.5 mg/dl (2.5-4.9); POTASSIUM 3.5 mmol/L (3.5-5.1)
[2017-10-07] MEDS: ASPIRIN 300 MG SUPP PR (09:00)
[2017-10-07] MEDS: CLOPIDOGREL 75 MG TAB PO (09:25)
[2017-10-07] MEDS: FOLIC ACID 1 MG TAB PO (09:25)
[2017-10-07] MEDS: FUROSEMIDE 40 MG INJ IV (09:26)
[2017-10-07] MEDS: ASPIRIN (EC) 81 MG TAB PO (09:26)
[2017-10-07] MEDS: REPAGLINIDE 1 MG TAB PO ×4 (09:26→18:04)
[2017-10-07] MEDS: INSULIN GLARGINE [LANtus] 3 ML PEN SC (09:34)
[2017-10-07] MEDS: INSULIN ASPART [NOVOLOG] 3 ML PEN SC ×4 (09:34→20:39)
[2017-10-07] MEDS: LIDOCAINE 5% PATCH TD (09:49)
[2017-10-07] MEDS ORDERED: DOCUSATE SODIUM 100 MG CAP PO (15:30)
[2017-10-07] MEDS: NA PHOSPHATE/BIPHOS 133 ML ENEMA PR (17:25)
[2017-10-07] MEDS: ATORVASTATIN 10 MG TAB PO (20:35)
[2017-10-08] MEDS: ALBUTEROL/IPRATROPIUM (NEB) 3 ML AMP HHN ×4 (01:28→20:11)
[2017-10-08] MEDS: LORAZEPAM 2 MG INJ IV (01:52)
[2017-10-08] MEDS: REPAGLINIDE 1 MG TAB PO ×4 (07:25→17:40)
[2017-10-08] MEDS: INSULIN GLARGINE [LANtus] 3 ML PEN SC (08:05)
[2017-10-08] MEDS: INSULIN ASPART [NOVOLOG] 3 ML PEN SC ×4 (08:05→22:12)
[2017-10-08 08:21] LABS: ADD MAN DIFF? NO
[2017-10-08 08:24] LABS: WHITE BLOOD COUNT 15.6 10^3/ul (4.8-10.8)
[2017-10-08 08:24] LABS: BASOPHILS % 0.3 % (0.0-2.0); EOSINOPHILS # 0.6 10^3/ul (0.0-0.5); HEMATOCRIT 32.9 % (42.0-52.0); HEMOGLOBIN 11.1 g/dl (14.0-18.0); LYMPHOCYTES # 0.9 10^3/ul (0.8-2.9); LYMPHOCYTES % 5.7 % (15.0-51.0); MEAN CORPUSCULAR HEMOGLOBIN 29.4 pg (29.0-33.0); MEAN CORPUSCULAR HGB CONC 33.7 g/dl (32.0-37.0); MEAN CORPUSCULAR VOLUME 87.3 fl (82.0-101.0); MEAN PLATELET VOLUME 10.5 fl (7.4-10.4); MONOCYTE # 0.9 10^3/ul (0.3-0.9); MONOCYTES % 5.5 % (0.0-11.0); NEUTROPHIL # 13.1 10^3/ul (1.6-7.5); NEUTROPHILS % 83.9 % (39.0-77.0); PLATELET COUNT 468 10^3/UL (140-415); RED BLOOD COUNT 3.77 10^6/ul (4.70-6.10); RED CELL DISTRIBUTION WIDTH 14.2 % (11.5-14.5)
[2017-10-08 08:43] LABS: ALANINE AMINOTRANSFERASE 32 IU/L (13-69); ALBUMIN 3.7 g/dl (3.3-4.9); ALBUMIN/GLOBULIN RATIO 1.12; ALKALINE PHOSPHATASE 126 IU/L (42-121); ANION GAP 18 (8-16); ASPARTATE AMINO TRANSFERASE 33 IU/L (15-46); BILIRUBIN,INDIRECT 0.3 mg/dl (0-1.1); BILIRUBIN,TOTAL 0.3 mg/dl (0.2-1.3); BLOOD UREA NITROGEN 56 mg/dl (7-20); CALCIUM 8.8 mg/dl (8.4-10.2); CARBON DIOXIDE 31 mmol/L (21-31); CHLORIDE 96 mmol/L (97-110); CREATININE 1.55 mg/dl (0.61-1.24); GLUCOSE 194 mg/dl (70-220); POTASSIUM 3.7 mmol/L (3.5-5.1); SODIUM 141 mmol/L (135-144)
[2017-10-08 08:53] LABS: ANION GAP 19 (8-16); BLOOD UREA NITROGEN 58 mg/dl (7-20); CALCIUM 8.8 mg/dl (8.4-10.2); CARBON DIOXIDE 31 mmol/L (21-31); CHLORIDE 96 mmol/L (97-110); CREATININE 1.53 mg/dl (0.61-1.24); GLUCOSE 188 mg/dl (70-220); MAGNESIUM 1.9 mg/dl (1.7-2.5); PHOSPHORUS 4.1 mg/dl (2.5-4.9); POTASSIUM 3.8 mmol/L (3.5-5.1); SODIUM 142 mmol/L (135-144)
[2017-10-08] MEDS: ASPIRIN 300 MG SUPP PR (09:00)
[2017-10-08] MEDS: FOLIC ACID 1 MG TAB PO (09:32)
[2017-10-08] MEDS: ASCORBIC ACID 500 MG TAB PO (09:32)
[2017-10-08] MEDS: FUROSEMIDE 40 MG INJ IV ×2 (09:32→17:40)
[2017-10-08] MEDS: CLOPIDOGREL 75 MG TAB PO (09:32)
[2017-10-08 09:33] LABS: B-TYPE NATRIURETIC PEPTIDE 2230 PG/ML (0-450)
[2017-10-08] MEDS: ASPIRIN (EC) 81 MG TAB PO (09:33)
[2017-10-08] MEDS: LIDOCAINE 5% PATCH TD (09:34)
[2017-10-08] MEDS: ATORVASTATIN 10 MG TAB PO (21:52)
[2017-10-08] MEDS: NYSTATIN 30 GM POWDER BTL TOP (21:53)
[2017-10-09] MEDS: ALBUTEROL/IPRATROPIUM (NEB) 3 ML AMP HHN ×4 (01:45→20:21)
[2017-10-09] MEDS: LORAZEPAM 2 MG INJ IV ×2 (02:16→22:37)
[2017-10-09] MEDS: INSULIN ASPART [NOVOLOG] 3 ML PEN SC ×5 (03:03→21:40)
[2017-10-09] MEDS: FUROSEMIDE 40 MG INJ IV (05:24)
[2017-10-09 08:23] LABS: ADD MAN DIFF? NO
[2017-10-09 08:27] LABS: BASOPHILS % 0.3 % (0.0-2.0); EOSINOPHILS # 0.7 10^3/ul (0.0-0.5); EOSINOPHILS % 4.6 % (0.0-7.0); HEMATOCRIT 32.6 % (42.0-52.0); HEMOGLOBIN 10.9 g/dl (14.0-18.0); LYMPHOCYTES # 0.8 10^3/ul (0.8-2.9); LYMPHOCYTES % 5.4 % (15.0-51.0); MEAN CORPUSCULAR HEMOGLOBIN 29.2 pg (29.0-33.0); MEAN CORPUSCULAR HGB CONC 33.4 g/dl (32.0-37.0); MEAN CORPUSCULAR VOLUME 87.4 fl (82.0-101.0); MEAN PLATELET VOLUME 10.2 fl (7.4-10.4); MONOCYTE # 0.9 10^3/ul (0.3-0.9); MONOCYTES % 5.9 % (0.0-11.0); NEUTROPHIL # 12.7 10^3/ul (1.6-7.5); NEUTROPHILS % 83.1 % (39.0-77.0); PLATELET COUNT 446 10^3/UL (140-415); RED BLOOD COUNT 3.73 10^6/ul (4.70-6.10); RED CELL DISTRIBUTION WIDTH 14.1 % (11.5-14.5)
[2017-10-09 08:27] LABS: WHITE BLOOD COUNT 15.3 10^3/ul (4.8-10.8)
[2017-10-09 08:46] LABS: ANION GAP 15 (8-16); BLOOD UREA NITROGEN 66 mg/dl (7-20); CARBON DIOXIDE 33 mmol/L (21-31); CHLORIDE 93 mmol/L (97-110); CREATININE 1.75 mg/dl (0.61-1.24); GLUCOSE 221 mg/dl (70-220); MAGNESIUM 1.8 mg/dl (1.7-2.5); POTASSIUM 3.4 mmol/L (3.5-5.1); SODIUM 138 mmol/L (135-144)
[2017-10-09] MEDS: ASPIRIN (EC) 81 MG TAB PO (09:00)
[2017-10-09] MEDS: REPAGLINIDE 1 MG TAB PO ×3 (09:00→17:36)
[2017-10-09] MEDS: LIDOCAINE 5% PATCH TD (09:00)
[2017-10-09] MEDS: ASCORBIC ACID 500 MG TAB PO (09:00)
[2017-10-09] MEDS: ASPIRIN 300 MG SUPP PR (09:00)
[2017-10-09] MEDS: CLOPIDOGREL 75 MG TAB PO (09:00)
[2017-10-09] MEDS: FOLIC ACID 1 MG TAB PO (09:00)
[2017-10-09] MEDS: INSULIN GLARGINE [LANtus] 3 ML PEN SC (09:15)
[2017-10-09] MEDS: NYSTATIN 30 GM POWDER BTL TOP ×2 (09:17→20:50)
[2017-10-09] MEDS: POTASSIUM CHLORIDE (SR) 20 MEQ TAB PO (11:40)
[2017-10-09 12:29] LABS: HEMOGLOBIN A1C 7.8 % (0-5.9)
[2017-10-09] MEDS: RIVAROXABAN 15 MG TABLET PO (17:36)
[2017-10-09] MEDS: ATORVASTATIN 10 MG TAB PO (20:50)
[2017-10-10] MEDS: ALBUTEROL/IPRATROPIUM (NEB) 3 ML AMP HHN ×4 (01:27→20:02)
[2017-10-10 07:21] LABS: ADD MAN DIFF? NO
[2017-10-10 07:25] LABS: BASOPHIL # 0.1 10^3/ul (0.0-0.1); BASOPHILS % 0.4 % (0.0-2.0); EOSINOPHILS # 0.6 10^3/ul (0.0-0.5); EOSINOPHILS % 3.7 % (0.0-7.0); HEMATOCRIT 34.9 % (42.0-52.0); HEMOGLOBIN 11.6 g/dl (14.0-18.0); LYMPHOCYTES % 6.5 % (15.0-51.0); MEAN CORPUSCULAR HEMOGLOBIN 29.5 pg (29.0-33.0); MEAN CORPUSCULAR HGB CONC 33.2 g/dl (32.0-37.0); MEAN CORPUSCULAR VOLUME 88.8 fl (82.0-101.0); MEAN PLATELET VOLUME 10.2 fl (7.4-10.4); MONOCYTES % 6.3 % (0.0-11.0); NEUTROPHIL # 13.2 10^3/ul (1.6-7.5); NEUTROPHILS % 82.5 % (39.0-77.0); PLATELET COUNT 424 10^3/UL (140-415); RED BLOOD COUNT 3.93 10^6/ul (4.70-6.10); RED CELL DISTRIBUTION WIDTH 13.9 % (11.5-14.5)
[2017-10-10 07:51] LABS: ALANINE AMINOTRANSFERASE 37 IU/L (13-69); ALBUMIN 3.8 g/dl (3.3-4.9); ALBUMIN/GLOBULIN RATIO 1.05; ALKALINE PHOSPHATASE 127 IU/L (42-121); ANION GAP 17 (8-16); ASPARTATE AMINO TRANSFERASE 36 IU/L (15-46); BILIRUBIN,INDIRECT 0.2 mg/dl (0-1.1); BILIRUBIN,TOTAL 0.2 mg/dl (0.2-1.3); BLOOD UREA NITROGEN 69 mg/dl (7-20); CALCIUM 9.6 mg/dl (8.4-10.2); CARBON DIOXIDE 31 mmol/L (21-31); CHLORIDE 98 mmol/L (97-110); CREATININE 1.61 mg/dl (0.61-1.24); GLUCOSE 187 mg/dl (70-220); POTASSIUM 3.9 mmol/L (3.5-5.1); SODIUM 142 mmol/L (135-144); TOTAL PROTEIN 7.4 g/dl (6.1-8.1)
[2017-10-10 08:00] LABS: B-TYPE NATRIURETIC PEPTIDE 1420 PG/ML (0-450)
[2017-10-10 08:21] LABS: MAGNESIUM 1.9 mg/dl (1.7-2.5)
[2017-10-10] MEDS: FOLIC ACID 1 MG TAB PO (08:56)
[2017-10-10] MEDS: ASCORBIC ACID 500 MG TAB PO (08:57)
[2017-10-10] MEDS: CLOPIDOGREL 75 MG TAB PO (08:57)
[2017-10-10] MEDS: REPAGLINIDE 1 MG TAB PO ×3 (08:57→17:42)
[2017-10-10] MEDS: INSULIN GLARGINE [LANtus] 3 ML PEN SC (08:58)
[2017-10-10] MEDS: INSULIN ASPART [NOVOLOG] 3 ML PEN SC ×4 (08:59→21:27)
[2017-10-10] MEDS: LIDOCAINE 5% PATCH TD (09:00)
[2017-10-10] MEDS ORDERED: FUROSEMIDE 40 MG INJ IV (09:00)
[2017-10-10] MEDS: NYSTATIN 30 GM POWDER BTL TOP ×2 (09:00→21:25)
[2017-10-10] MEDS: RIVAROXABAN 15 MG TABLET PO (17:42)
[2017-10-10] MEDS: ATORVASTATIN 10 MG TAB PO (21:20)
[2017-10-11] MEDS: ALBUTEROL/IPRATROPIUM (NEB) 3 ML AMP HHN ×4 (01:48→19:47)
[2017-10-11] MEDS: ASCORBIC ACID 500 MG TAB PO (08:17)
[2017-10-11] MEDS: REPAGLINIDE 1 MG TAB PO ×3 (08:18→16:49)
[2017-10-11] MEDS: CLOPIDOGREL 75 MG TAB PO (08:18)
[2017-10-11] MEDS: FUROSEMIDE 40 MG TAB GTB (08:18)
[2017-10-11] MEDS: FOLIC ACID 1 MG TAB PO (08:18)
[2017-10-11] MEDS: LIDOCAINE 5% PATCH TD (08:19)
[2017-10-11] MEDS: NYSTATIN 30 GM POWDER BTL TOP ×2 (08:19→21:22)
[2017-10-11] MEDS: INSULIN GLARGINE [LANtus] 3 ML PEN SC (08:23)
[2017-10-11] MEDS: INSULIN ASPART [NOVOLOG] 3 ML PEN SC ×4 (08:23→21:00)
[2017-10-11 08:46] LABS: ADD MAN DIFF? NO
[2017-10-11 08:54] LABS: BASOPHIL # 0.1 10^3/ul (0.0-0.1); BASOPHILS % 0.5 % (0.0-2.0); EOSINOPHILS # 0.5 10^3/ul (0.0-0.5); EOSINOPHILS % 3.9 % (0.0-7.0); HEMATOCRIT 36.6 % (42.0-52.0); HEMOGLOBIN 12.1 g/dl (14.0-18.0); LYMPHOCYTES # 1.1 10^3/ul (0.8-2.9); LYMPHOCYTES % 7.9 % (15.0-51.0); MEAN CORPUSCULAR HEMOGLOBIN 28.9 pg (29.0-33.0); MEAN CORPUSCULAR HGB CONC 33.1 g/dl (32.0-37.0); MEAN CORPUSCULAR VOLUME 87.6 fl (82.0-101.0); MEAN PLATELET VOLUME 10.6 fl (7.4-10.4); MONOCYTES % 7.1 % (0.0-11.0); NEUTROPHIL # 11.2 10^3/ul (1.6-7.5); PLATELET COUNT 411 10^3/UL (140-415); RED BLOOD COUNT 4.18 10^6/ul (4.70-6.10); RED CELL DISTRIBUTION WIDTH 13.9 % (11.5-14.5)
[2017-10-11 09:23] LABS: ALANINE AMINOTRANSFERASE 41 IU/L (13-69); ALBUMIN 3.8 g/dl (3.3-4.9); ALBUMIN/GLOBULIN RATIO 1.08; ALKALINE PHOSPHATASE 132 IU/L (42-121); ANION GAP 18 (8-16); ASPARTATE AMINO TRANSFERASE 44 IU/L (15-46); BILIRUBIN,INDIRECT 0.2 mg/dl (0-1.1); BILIRUBIN,TOTAL 0.2 mg/dl (0.2-1.3); BLOOD UREA NITROGEN 70 mg/dl (7-20); CALCIUM 9.7 mg/dl (8.4-10.2); CARBON DIOXIDE 29 mmol/L (21-31); CHLORIDE 97 mmol/L (97-110); GLUCOSE 231 mg/dl (70-220); MAGNESIUM 1.9 mg/dl (1.7-2.5); POTASSIUM 4.1 mmol/L (3.5-5.1); SODIUM 140 mmol/L (135-144); TOTAL PROTEIN 7.3 g/dl (6.1-8.1)
[2017-10-11 09:31] LABS: B-TYPE NATRIURETIC PEPTIDE 1370 PG/ML (0-450)
[2017-10-11] MEDS: RIVAROXABAN 15 MG TABLET PO (16:50)
[2017-10-11] MEDS: ATORVASTATIN 10 MG TAB PO (21:21)
[2017-10-12] MEDS: ALBUTEROL/IPRATROPIUM (NEB) 3 ML AMP HHN ×4 (01:08→19:31)
[2017-10-12 07:15] LABS: ANION GAP 18 (8-16); BLOOD UREA NITROGEN 69 mg/dl (7-20); CALCIUM 10.1 mg/dl (8.4-10.2); CARBON DIOXIDE 32 mmol/L (21-31); CHLORIDE 97 mmol/L (97-110); CREATININE 2.03 mg/dl (0.61-1.24); GLUCOSE 164 mg/dl (70-220); PHOSPHORUS 5.8 mg/dl (2.5-4.9); POTASSIUM 4.2 mmol/L (3.5-5.1); SODIUM 143 mmol/L (135-144)
[2017-10-12] MEDS: LIDOCAINE 5% PATCH TD (08:25)
[2017-10-12] MEDS: NYSTATIN 30 GM POWDER BTL TOP ×2 (08:26→20:10)
[2017-10-12] MEDS: CLOPIDOGREL 75 MG TAB PO (08:26)
[2017-10-12] MEDS: ASCORBIC ACID 500 MG TAB PO (08:26)
[2017-10-12] MEDS: REPAGLINIDE 1 MG TAB PO (08:26)
[2017-10-12] MEDS: FOLIC ACID 1 MG TAB PO (08:26)
[2017-10-12] MEDS: INSULIN GLARGINE [LANtus] 3 ML PEN SC (08:29)
[2017-10-12] MEDS: INSULIN ASPART [NOVOLOG] 3 ML PEN SC ×4 (08:31→20:21)
[2017-10-12] MEDS: REPAGLINIDE 2 MG TAB PO ×2 (12:13→17:02)
[2017-10-12] MEDS: RIVAROXABAN 15 MG TABLET PO (17:02)
[2017-10-12] MEDS: ATORVASTATIN 10 MG TAB PO (20:10)
[2017-10-13] MEDS: ALBUTEROL/IPRATROPIUM (NEB) 3 ML AMP HHN ×4 (01:33→20:07)
[2017-10-13 06:45] LABS: ADD MAN DIFF? NO
[2017-10-13 06:54] LABS: BASOPHIL # 0.1 10^3/ul (0.0-0.1); BASOPHILS % 0.6 % (0.0-2.0); EOSINOPHILS # 0.5 10^3/ul (0.0-0.5); HEMATOCRIT 33.3 % (42.0-52.0); HEMOGLOBIN 11.2 g/dl (14.0-18.0); LYMPHOCYTES # 1.2 10^3/ul (0.8-2.9); LYMPHOCYTES % 9.6 % (15.0-51.0); MEAN CORPUSCULAR HEMOGLOBIN 29.3 pg (29.0-33.0); MEAN CORPUSCULAR HGB CONC 33.6 g/dl (32.0-37.0); MEAN CORPUSCULAR VOLUME 87.2 fl (82.0-101.0); MEAN PLATELET VOLUME 10.2 fl (7.4-10.4); MONOCYTE # 0.8 10^3/ul (0.3-0.9); MONOCYTES % 6.5 % (0.0-11.0); NEUTROPHIL # 9.8 10^3/ul (1.6-7.5); NEUTROPHILS % 78.9 % (39.0-77.0); PLATELET COUNT 388 10^3/UL (140-415); RED BLOOD COUNT 3.82 10^6/ul (4.70-6.10); RED CELL DISTRIBUTION WIDTH 14.2 % (11.5-14.5)
[2017-10-13 06:54] LABS: WHITE BLOOD COUNT 12.4 10^3/ul (4.8-10.8)
[2017-10-13 07:25] LABS: ANION GAP 15 (8-16); BLOOD UREA NITROGEN 70 mg/dl (7-20); CALCIUM 9.2 mg/dl (8.4-10.2); CARBON DIOXIDE 30 mmol/L (21-31); CHLORIDE 96 mmol/L (97-110); CREATININE 1.73 mg/dl (0.61-1.24); GLUCOSE 146 mg/dl (70-220); MAGNESIUM 1.8 mg/dl (1.7-2.5); PHOSPHORUS 4.8 mg/dl (2.5-4.9); POTASSIUM 3.8 mmol/L (3.5-5.1); SODIUM 137 mmol/L (135-144)
[2017-10-13] MEDS: ASCORBIC ACID 500 MG TAB PO (08:09)
[2017-10-13] MEDS: CLOPIDOGREL 75 MG TAB PO (08:09)
[2017-10-13] MEDS: REPAGLINIDE 2 MG TAB PO ×3 (08:09→17:00)
[2017-10-13] MEDS: NYSTATIN 30 GM POWDER BTL TOP ×2 (08:09→21:45)
[2017-10-13] MEDS: LIDOCAINE 5% PATCH TD (08:09)
[2017-10-13] MEDS: FOLIC ACID 1 MG TAB PO (08:09)
[2017-10-13] MEDS: INSULIN GLARGINE [LANtus] 3 ML PEN SC (08:15)
[2017-10-13] MEDS: INSULIN ASPART [NOVOLOG] 3 ML PEN SC ×4 (08:15→21:00)
[2017-10-13] MEDS: RIVAROXABAN 15 MG TABLET PO (17:00)
[2017-10-13] MEDS: ATORVASTATIN 10 MG TAB PO (21:43)
[2017-10-14] MEDS: ALBUTEROL/IPRATROPIUM (NEB) 3 ML AMP HHN ×2 (02:20→08:05)
[2017-10-14] MEDS: INSULIN ASPART [NOVOLOG] 3 ML PEN SC ×4 (07:56→20:59)
[2017-10-14] MEDS: INSULIN GLARGINE [LANtus] 3 ML PEN SC (07:57)
[2017-10-14 08:03] LABS: ANION GAP 16 (8-16); BLOOD UREA NITROGEN 68 mg/dl (7-20); CALCIUM 8.9 mg/dl (8.4-10.2); CARBON DIOXIDE 28 mmol/L (21-31); CHLORIDE 99 mmol/L (97-110); GLUCOSE 163 mg/dl (70-220); MAGNESIUM 1.9 mg/dl (1.7-2.5); PHOSPHORUS 4.7 mg/dl (2.5-4.9); POTASSIUM 3.8 mmol/L (3.5-5.1); SODIUM 139 mmol/L (135-144)
[2017-10-14] MEDS: FOLIC ACID 1 MG TAB PO (08:05)
[2017-10-14] MEDS: ASCORBIC ACID 500 MG TAB PO (08:05)
[2017-10-14] MEDS: CLOPIDOGREL 75 MG TAB PO (08:05)
[2017-10-14] MEDS: REPAGLINIDE 2 MG TAB PO ×2 (08:05→11:50)
[2017-10-14] MEDS: NYSTATIN 30 GM POWDER BTL TOP ×2 (08:06→20:59)
[2017-10-14] MEDS: LIDOCAINE 5% PATCH TD (08:17)
[2017-10-14] MEDS: morphine 2 MG INJ IV (09:01)
[2017-10-14] MEDS: RIVAROXABAN 15 MG TABLET PO (17:29)
[2017-10-14] MEDS: ATORVASTATIN 10 MG TAB PO (20:50)
[2017-10-15] MEDS: INSULIN ASPART [NOVOLOG] 3 ML PEN SC ×4 (08:08→21:23)
[2017-10-15] MEDS: INSULIN GLARGINE [LANtus] 3 ML PEN SC (08:08)
[2017-10-15] MEDS: FUROSEMIDE 20 MG TAB PO (08:15)
[2017-10-15] MEDS: CLOPIDOGREL 75 MG TAB PO (08:15)
[2017-10-15] MEDS: LIDOCAINE 5% PATCH TD (08:16)
[2017-10-15] MEDS: NYSTATIN 30 GM POWDER BTL TOP ×2 (08:17→21:00)
[2017-10-15] MEDS: AL HYDROX/MG HYDROX/SIMETH 30 ML CUP PO ×2 (14:45→22:41)
[2017-10-15] MEDS: ATORVASTATIN 10 MG TAB PO (21:24)
[2017-10-15] MEDS: ONDANSETRON 4 MG INJ IV (22:41)
[2017-10-16] MEDS: INSULIN GLARGINE [LANtus] 3 ML PEN SC (08:13)
[2017-10-16] MEDS: INSULIN ASPART [NOVOLOG] 3 ML PEN SC ×2 (08:14→12:10)
[2017-10-16] MEDS: CLOPIDOGREL 75 MG TAB PO (08:30)
[2017-10-16] MEDS: NYSTATIN 30 GM POWDER BTL TOP (08:34)
[2017-10-16] MEDS: LIDOCAINE 5% PATCH TD (08:34)
[2017-10-16] MEDS: ASPIRIN (EC) 81 MG TAB PO (09:59)
[2017-10-16 11:57] LABS: ANION GAP 14 (8-16); BLOOD UREA NITROGEN 45 mg/dl (7-20); CALCIUM 9.1 mg/dl (8.4-10.2); CARBON DIOXIDE 30 mmol/L (21-31); CHLORIDE 97 mmol/L (97-110); CREATININE 1.55 mg/dl (0.61-1.24); GLUCOSE 197 mg/dl (70-220); MAGNESIUM 1.9 mg/dl (1.7-2.5); PHOSPHORUS 3.4 mg/dl (2.5-4.9); POTASSIUM 3.9 mmol/L (3.5-5.1); SODIUM 137 mmol/L (135-144)
== END 2017-10-16 13:28 | disposition home health service (06) | DRG 871 ==
LOC: E/R 23:50 → TEL 10-10 18:39 → E/R 17:55 → ICU 21:10 → E/R 23:50 → ICU 09-29 22:17 → TEL 10-06 23:39 → ICU 09-29 17:04
PROC: 5A09457 Assistance with Respiratory Ventilation, 24-96 Consecutive Hours, Continuous Positive Airway Pressure (ICD-10-PCS; 2017-09-29)
PROC: 0W993ZZ Drainage of Right Pleural Cavity, Percutaneous Approach (ICD-10-PCS; principal; 2017-10-02)
DX: A41.9 Sepsis, unspecified organism (principal); J18.9 Pneumonia, unspecified organism; J96.01 Acute respiratory failure with hypoxia; I50.43 Acute on chronic combined systolic (congestive) and diastolic (congestive) heart failure; N17.9 Acute kidney failure, unspecified; G92 Toxic encephalopathy; E87.0 Hyperosmolality and hypernatremia; E87.2 Acidosis; E87.3 Alkalosis; I13.0 Hypertensive heart and chronic kidney disease with heart failure and stage 1 through stage 4 chronic kidney disease, or unspecified chronic kidney disease; I48.0 Paroxysmal atrial fibrillation; E11.22 Type 2 diabetes mellitus with diabetic chronic kidney disease; E11.65 Type 2 diabetes mellitus with hyperglycemia; E87.5 Hyperkalemia; I27.20 Pulmonary hypertension, unspecified; J84.10 Pulmonary fibrosis, unspecified; R65.20 Severe sepsis without septic shock; D64.9 Anemia, unspecified; N18.9 Chronic kidney disease, unspecified; E78.5 Hyperlipidemia, unspecified; E87.6 Hypokalemia; I25.10 Atherosclerotic heart disease of native coronary artery without angina pectoris; K59.00 Constipation, unspecified; N40.0 Benign prostatic hyperplasia without lower urinary tract symptoms; Z95.1 Presence of aortocoronary bypass graft; Z95.5 Presence of coronary angioplasty implant and graft; Z87.891 Personal history of nicotine dependence; Z79.84 Long term (current) use of oral hypoglycemic drugs; Z79.02 Long term (current) use of antithrombotics/antiplatelets; Z79.82 Long term (current) use of aspirin
CPT/HCPCS: 32555; 36600; 70450; 71045; 71250; 74176; 76775; 80048; 80053; 80061; 80076; 80202; 81001; 81003; 81005; 82043; 82150; 82550; 82553; 82803; 82962; 83036; 83605; 83690; 83735; 83880; 84100; 84145; 84153; 84154; 84155; 84300; 84439; 84443; 84484; 85025; 85610; 85730; 87040; 87081; 87086; 87400; 92526; 92610; 93005; 93306; 94640; 94644; 94660; 94664; 97110; 97163; 97530

== ENCOUNTER 2019-01-12 21:45 | Inpatient (IN) | payer MEDICARE, OTHER ==
[2019-01-12 22:16] LABS: WHITE BLOOD COUNT 11.2 10^3/ul (4.8-10.8)
[2019-01-12 22:16] LABS: ADD MAN DIFF? NO; BASOPHILS % 0.4 % (0.0-2.0); EOSINOPHILS % 0.4 % (0.0-7.0); HEMATOCRIT 33.7 % (42.0-52.0); HEMOGLOBIN 11.3 g/dl (14.0-18.0); LYMPHOCYTES # 0.9 10^3/ul (0.8-2.9); LYMPHOCYTES % 8.3 % (15.0-51.0); MEAN CORPUSCULAR HEMOGLOBIN 28.8 pg (29.0-33.0); MEAN CORPUSCULAR HGB CONC 33.5 g/dl (32.0-37.0); MEAN PLATELET VOLUME 10.9 fl (7.4-10.4); MONOCYTE # 0.7 10^3/ul (0.3-0.9); MONOCYTES % 6.4 % (0.0-11.0); NEUTROPHIL # 9.3 10^3/ul (1.6-7.5); NEUTROPHILS % 83.5 % (39.0-77.0); PLATELET COUNT 328 10^3/UL (140-415); RED BLOOD COUNT 3.92 10^6/ul (4.70-6.10); RED CELL DISTRIBUTION WIDTH 14.7 % (11.5-14.5)
[2019-01-12 22:21] LABS: URINE PH (Dip) POC 5.5 (5.0-8.5)
[2019-01-12 22:21] LABS: URINE BLOOD (Dip) POC Trace-intact (NEGATIVE); URINE KETONES (Dip) POC Negative (NEGATIVE); URINE LEUKOCYTE EST (Dip) POC Negative (NEGATIVE); URINE NITRITE (Dip) POC Negative (NEGATIVE); URINE TOTAL PROTEIN POC 2+ (NEGATIVE)
[2019-01-12 22:23] LABS: ALANINE AMINOTRANSFERASE 28 IU/L (13-69); ALBUMIN 4.2 g/dl (3.3-4.9); ALBUMIN/GLOBULIN RATIO 1.27; ALKALINE PHOSPHATASE 181 IU/L (42-121); ANION GAP 14 (5-13); ASPARTATE AMINO TRANSFERASE 21 IU/L (15-46); BILIRUBIN,INDIRECT 0.3 mg/dl (0-1.1); BILIRUBIN,TOTAL 0.3 mg/dl (0.2-1.3); BLOOD UREA NITROGEN 49 mg/dl (7-20); CALCIUM 9.6 mg/dl (8.4-10.2); CARBON DIOXIDE 20 mmol/L (21-31); CHLORIDE 104 mmol/L (97-110); CREATININE 1.28 mg/dl (0.61-1.24); POTASSIUM 4.5 mmol/L (3.5-5.1); SODIUM 138 mmol/L (135-144); TOTAL PROTEIN 7.5 g/dl (6.1-8.1)
[2019-01-12 22:35] LABS: B-TYPE NATRIURETIC PEPTIDE 6260 PG/ML (0-450); TROPONIN-I 0.024 ng/ml (0.000-0.120)
[2019-01-12 23:06] LABS: GLUCOSE 507 mg/dl (70-220)
[2019-01-12] MEDS ORDERED: NS + KCL 40 MEQ 1,000 ML IV (23:06)
[2019-01-12] MEDS ORDERED: DEXTROSE 10 %/0.45 % NACL 1,000 ML IV (23:06)
[2019-01-12] MEDS ORDERED: D10/0.45% NACL + KCL 40 MEQ 1,000 ML IV (23:06)
[2019-01-12] MEDS ORDERED: SOD CHLORIDE 0.9% 1,000 ML IV (23:06)
[2019-01-12 23:24] LABS: LACTIC ACID 2.6 mmol/L (0.5-2.0)
[2019-01-12] MEDS ORDERED: DEXTROSE 50% 50 ML SYRINGE IV ×2 (23:30)
[2019-01-12 23:38] LABS: HEMOGLOBIN A1C 8.6 % (0-5.9)
[2019-01-12 23:58] LABS: MODE ROOM AIR; MetHgb Venous 0.2 %; Sample Type Blood venous; Site VENOUS LINE; Venous COHb 0.8 %; Venous Fraction OxyHgb 86.1 %
[2019-01-13] MEDS: CEFEPIME 2GM/50 ML (PMX) 50 ML IVPB (00:08)
[2019-01-13] MEDS: INSULIN REGULAR, HUMAN 100 UNIT in SOD CHLORIDE 0.9% 100 ML IV (00:14)
[2019-01-13] MEDS: VANCOMYCIN 1 GM (PMX) 250 ML IVPB (00:20)
[2019-01-13 01:11] LABS: LACTIC ACID 2.4 mmol/L (0.5-2.0)
[2019-01-13] MEDS: NS + KCL 30 MEQ 1,000 ML IV (01:42)
[2019-01-13] MEDS: LACTATED RINGER S IV (01:46)
[2019-01-13 01:49] LABS: ANION GAP 11 (5-13); BLOOD UREA NITROGEN 51 mg/dl (7-20); CALCIUM 9.2 mg/dl (8.4-10.2); CARBON DIOXIDE 22 mmol/L (21-31); CHLORIDE 105 mmol/L (97-110); CREATININE 1.19 mg/dl (0.61-1.24); MAGNESIUM 1.9 mg/dl (1.7-2.5); PHOSPHORUS 2.9 mg/dl (2.5-4.9); POTASSIUM 4.4 mmol/L (3.5-5.1); SODIUM 138 mmol/L (135-144)
[2019-01-13 02:04] LABS: GLUCOSE 420 mg/dl (70-220)
[2019-01-13] MEDS: D10/0.45% NACL + KCL 30 MEQ 1,000 ML IV (02:40)
[2019-01-13 03:14] LABS: MODE NASAL CANNULA; MetHgb Venous 0.2 %; Sample Type Blood venous; Site VENOUS LINE; Venous COHb 0.3 %; Venous Oxygen Sat 77.4 mmHG (55.0-75.0); Venous Total Hemglobin 12.5 g/dl
[2019-01-13] MEDS: INSULIN GLARGINE [LANTus] (100 UNITS/ML) SYG SC ×2 (03:26→17:50)
[2019-01-13 04:08] LABS: ANION GAP 12 (5-13); BLOOD UREA NITROGEN 46 mg/dl (7-20); CALCIUM 9.7 mg/dl (8.4-10.2); CARBON DIOXIDE 21 mmol/L (21-31); CHLORIDE 110 mmol/L (97-110); CREATININE 1.14 mg/dl (0.61-1.24); GLUCOSE 205 mg/dl (70-220); MAGNESIUM 1.9 mg/dl (1.7-2.5); PHOSPHORUS 2.6 mg/dl (2.5-4.9); POTASSIUM 4.1 mmol/L (3.5-5.1); SODIUM 143 mmol/L (135-144)
[2019-01-13] MEDS ORDERED: ALBUTEROL/IPRATROPIUM (NEB) 3 ML AMP HHN (04:30)
[2019-01-13] MEDS: ACETYLCYSTEINE 20% 4 ML VIAL NEB (05:30)
[2019-01-13] MEDS: ALBUTEROL/IPRATROPIUM (NEB) 3 ML AMP NEB (05:30)
[2019-01-13] MEDS ORDERED: GLUCOSE GEL 15 GRAM TUBE PO ×2 (06:00)
[2019-01-13] MEDS ORDERED: GLUCOSE GEL 15 GRAM TUBE BUCCAL (06:00)
[2019-01-13] MEDS: CEFTRIAXONE 1 GM/50 ML (PMX) 50 ML IVPB ×2 (06:00→20:21)
[2019-01-13] MEDS ORDERED: DEXTROSE 50% 50 ML SYRINGE IV ×2 (06:00)
[2019-01-13] MEDS ORDERED: GLUCAGON 1 MG INJ IM (06:00)
[2019-01-13] MEDS: AZITHROMYCIN 500MG/NS (PMX) 250 ML IVPB (06:02)
[2019-01-13] MEDS: METHYLPREDNISOLONE 125 MG INJ IV (06:04)
[2019-01-13] MEDS: FUROSEMIDE 40 MG INJ IV ×2 (06:04→09:00)
[2019-01-13] MEDS: INSULIN ASPART [NOVOLOG] 3 ML PEN SC ×6 (07:35→21:19)
[2019-01-13] MEDS: GEMFIBROZIL 600 MG TAB PO ×2 (09:16→20:20)
[2019-01-13] MEDS: COLCHICINE 0.6 MG TAB PO (09:16)
[2019-01-13] MEDS: FOLIC ACID 1 MG TAB PO (09:16)
[2019-01-13] MEDS: CLOPIDOGREL 75 MG TAB PO (09:16)
[2019-01-13] MEDS: FERROUS SULFATE (EC) 325 MG TAB PO (09:17)
[2019-01-13] MEDS: METOPROLOL 25 MG TAB PO (09:18)
[2019-01-13] MEDS: HEPARIN 5,000 UNIT/1 ML VIAL SC ×2 (09:21→20:36)
[2019-01-13] MEDS: TAMSULOSIN (SR) 0.4 MG CAP PO (20:19)
[2019-01-13] MEDS: ACETAMINOPHEN 325 MG TAB PO (20:21)
[2019-01-13 21:55] LABS: GLUCOSE 416 mg/dl (70-220)
[2019-01-13] MEDS: ACCU-CHEK XX (23:24)
[2019-01-14] MEDS: hydrALAzine 20 MG INJ IV ×2 (00:02→20:56)
[2019-01-14] MEDS: ACCU-CHEK XX (01:42)
[2019-01-14] MEDS ORDERED: ACCU-CHEK XX (02:00)
[2019-01-14] MEDS: AZITHROMYCIN 500MG/NS (PMX) 250 ML IVPB (05:08)
[2019-01-14 05:22] LABS: ADD MAN DIFF? NO
[2019-01-14 05:34] LABS: WHITE BLOOD COUNT 14.2 10^3/ul (4.8-10.8)
[2019-01-14 05:34] LABS: BASOPHILS % 0.2 % (0.0-2.0); EOSINOPHILS % 0.1 % (0.0-7.0); HEMATOCRIT 33.9 % (42.0-52.0); HEMOGLOBIN 11.6 g/dl (14.0-18.0); LYMPHOCYTES # 0.9 10^3/ul (0.8-2.9); LYMPHOCYTES % 6.4 % (15.0-51.0); MEAN CORPUSCULAR HEMOGLOBIN 28.6 pg (29.0-33.0); MEAN CORPUSCULAR HGB CONC 34.2 g/dl (32.0-37.0); MEAN CORPUSCULAR VOLUME 83.5 fl (82.0-101.0); MEAN PLATELET VOLUME 11.2 fl (7.4-10.4); MONOCYTE # 0.9 10^3/ul (0.3-0.9); MONOCYTES % 6.3 % (0.0-11.0); NEUTROPHIL # 12.2 10^3/ul (1.6-7.5); NEUTROPHILS % 86.3 % (39.0-77.0); PLATELET COUNT 327 10^3/UL (140-415); RED BLOOD COUNT 4.06 10^6/ul (4.70-6.10); RED CELL DISTRIBUTION WIDTH 14.8 % (11.5-14.5)
[2019-01-14 06:23] LABS: ANION GAP 13 (5-13); BLOOD UREA NITROGEN 54 mg/dl (7-20); CALCIUM 9.9 mg/dl (8.4-10.2); CARBON DIOXIDE 23 mmol/L (21-31); CHLORIDE 105 mmol/L (97-110); CREATININE 1.49 mg/dl (0.61-1.24); GLUCOSE 259 mg/dl (70-220); POTASSIUM 4.2 mmol/L (3.5-5.1); SODIUM 141 mmol/L (135-144)
[2019-01-14] MEDS: INSULIN ASPART [NOVOLOG] 3 ML PEN SC ×7 (08:06→20:47)
[2019-01-14] MEDS: FOLIC ACID 1 MG TAB PO (08:33)
[2019-01-14] MEDS: GEMFIBROZIL 600 MG TAB PO ×2 (08:33→20:44)
[2019-01-14] MEDS: COLCHICINE 0.6 MG TAB PO (08:33)
[2019-01-14] MEDS: CLOPIDOGREL 75 MG TAB PO (08:33)
[2019-01-14] MEDS: METOPROLOL 25 MG TAB PO (08:34)
[2019-01-14] MEDS: FUROSEMIDE 40 MG INJ IV (08:34)
[2019-01-14] MEDS: HEPARIN 5,000 UNIT/1 ML VIAL SC ×2 (08:36→20:46)
[2019-01-14] MEDS: CEFTRIAXONE 1 GM/50 ML (PMX) 50 ML IVPB ×2 (08:43→20:45)
[2019-01-14] MEDS: TAMSULOSIN (SR) 0.4 MG CAP PO (20:44)
[2019-01-14] MEDS: INSULIN GLARGINE [LANTus] (100 UNITS/ML) SYG SC (20:50)
[2019-01-14] MEDS: AL HYDROX/MG HYDROX/SIMETH 30 ML CUP PO (22:09)
[2019-01-14] MEDS: PANTOPRAZOLE (EC) 40 MG TAB PO (22:12)
[2019-01-14] MEDS ORDERED: PANTOPRAZOLE 40 MG INJ IV (22:30)
[2019-01-15] MEDS: ACCU-CHEK XX (01:37)
[2019-01-15] MEDS: ACETAMINOPHEN 325 MG TAB PO (04:09)
[2019-01-15] MEDS: AL HYDROX/MG HYDROX/SIMETH 30 ML CUP PO (04:15)
[2019-01-15] MEDS: AZITHROMYCIN 500MG/NS (PMX) 250 ML IVPB (05:35)
[2019-01-15] MEDS: PANTOPRAZOLE (EC) 40 MG TAB PO (05:35)
[2019-01-15] MEDS: ONDANSETRON 4 MG INJ IV (06:26)
[2019-01-15 08:32] LABS: ADD MAN DIFF? NO
[2019-01-15 08:37] LABS: WHITE BLOOD COUNT 12.1 10^3/ul (4.8-10.8)
[2019-01-15 08:37] LABS: BASOPHILS % 0.2 % (0.0-2.0); EOSINOPHILS # 0.1 10^3/ul (0.0-0.5); EOSINOPHILS % 0.9 % (0.0-7.0); HEMATOCRIT 37.8 % (42.0-52.0); HEMOGLOBIN 12.7 g/dl (14.0-18.0); LYMPHOCYTES # 0.8 10^3/ul (0.8-2.9); LYMPHOCYTES % 6.7 % (15.0-51.0); MEAN CORPUSCULAR HEMOGLOBIN 28.2 pg (29.0-33.0); MEAN CORPUSCULAR HGB CONC 33.6 g/dl (32.0-37.0); MEAN PLATELET VOLUME 11.3 fl (7.4-10.4); MONOCYTE # 0.7 10^3/ul (0.3-0.9); MONOCYTES % 5.4 % (0.0-11.0); NEUTROPHIL # 10.4 10^3/ul (1.6-7.5); NEUTROPHILS % 86.1 % (39.0-77.0); PLATELET COUNT 343 10^3/UL (140-415)
[2019-01-15] MEDS: INSULIN ASPART [NOVOLOG] 3 ML PEN SC ×4 (08:59→13:00)
[2019-01-15] MEDS: COLCHICINE 0.6 MG TAB PO (08:59)
[2019-01-15] MEDS: CLOPIDOGREL 75 MG TAB PO (08:59)
[2019-01-15] MEDS: METOPROLOL 25 MG TAB PO (09:00)
[2019-01-15] MEDS: FUROSEMIDE 40 MG INJ IV (09:00)
[2019-01-15] MEDS: GEMFIBROZIL 600 MG TAB PO (09:00)
[2019-01-15] MEDS: FOLIC ACID 1 MG TAB PO (09:00)
[2019-01-15] MEDS: HEPARIN 5,000 UNIT/1 ML VIAL SC (09:02)
[2019-01-15] MEDS: CEFTRIAXONE 1 GM/50 ML (PMX) 50 ML IVPB (09:05)
[2019-01-15 09:14] LABS: ANION GAP 14 (5-13); BLOOD UREA NITROGEN 56 mg/dl (7-20); CALCIUM 9.4 mg/dl (8.4-10.2); CARBON DIOXIDE 24 mmol/L (21-31); CHLORIDE 100 mmol/L (97-110); CREATININE 1.38 mg/dl (0.61-1.24); GLUCOSE 276 mg/dl (70-220); POTASSIUM 4.2 mmol/L (3.5-5.1); SODIUM 138 mmol/L (135-144)
[2019-01-15 09:18] LABS: TROPONIN-I 0.027 ng/ml (0.000-0.120)
[2019-01-15 13:17] LABS: AADO2 Arterial 18.9 mmHg (7.0-24.0); Allen Test ACCEPTAB; Arterial Base Excess 3.3 mmol/L (-3.0-3); Arterial Blood Gas Oxygen Sat 95.7 mmHG (95.0-100.0); Arterial COHb 0.5 % (0.0-3.0); Arterial Fraction of Oxyhgb 95.1 % (93.0-99.0); Arterial HCO3 27.5 mmol/L (22.0-26.0); Arterial MetHb 0.1 % (0.0-1.5); Arterial pCO2 40.4 mmhg (35-45); MODE ROOM AIR; Site Right Radial
== END 2019-01-15 15:00 | disposition home or self-care (01) | DRG 292 ==
LOC: ICU 01-13 00:36 → E/R 21:45 → ICU 23:40
PROVIDERS: Internal Medicine
DX: I11.0 Hypertensive heart disease with heart failure (principal); N17.9 Acute kidney failure, unspecified; I50.33 Acute on chronic diastolic (congestive) heart failure; J40 Bronchitis, not specified as acute or chronic; E11.65 Type 2 diabetes mellitus with hyperglycemia; I48.91 Unspecified atrial fibrillation; Z95.1 Presence of aortocoronary bypass graft; R00.1 Bradycardia, unspecified; I25.10 Atherosclerotic heart disease of native coronary artery without angina pectoris; D63.8 Anemia in other chronic diseases classified elsewhere; E78.5 Hyperlipidemia, unspecified; K21.9 Gastro-esophageal reflux disease without esophagitis; D50.9 Iron deficiency anemia, unspecified; T44.7X5A Adverse effect of beta-adrenoreceptor antagonists, initial encounter; R11.2 Nausea with vomiting, unspecified; Z79.4 Long term (current) use of insulin; I25.2 Old myocardial infarction; Z95.5 Presence of coronary angioplasty implant and graft; Z87.891 Personal history of nicotine dependence; Y92.019 Unspecified place in single-family (private) house as the place of occurrence of the external cause
CPT/HCPCS: 36415; 36600; 71045; 80048; 80053; 81003; 82803; 82947; 82962; 83036; 83605; 83735; 83880; 84100; 84484; 85025; 87040-91; 87081; 87400; 93005; 93306; 94640; 94664; 99285-25